=== PATIENT | female | born 1990 | race Caucasian/White ===

== ENCOUNTER 2018-05-03 14:07 | Emergency (ER) | payer SELFPAY ==
[2018-05-03] MEDS ORDERED: Dexamethasone 10 MG/ML VIAL ONE (14:27)
--- NOTE | 2018-05-03 15:01 | RAD ---
SINGLE VIEW OF THE CHEST: Comparison: 12-04-16 History: Acute asthma, dyspnea. FINDINGS: Single view of the chest shows a normal sized cardiomediastinal silhouette. There is no evidence of c onsolidation, mass, or pleural effusion. The bones are unremarkable. IMPRESSION: No evidence of acute cardiopulmonary disease. POS: [facility]
== END 2018-05-03 15:54 | disposition home or self-care (01) ==
LOC: ERS 14:07
DX: J45.901 Unspecified asthma with (acute) exacerbation (principal); F41.9 Anxiety disorder, unspecified; F17.290 Nicotine dependence, other tobacco product, uncomplicated; Z79.899 Other long term (current) drug therapy
CPT/HCPCS: 71045; 94640; J1100; J7620

== ENCOUNTER 2018-10-11 18:29 | Emergency (ER) | payer SELFPAY ==
[2018-10-11] MEDS ORDERED: Albuterol Sulfate 2.5 mg/3 ml Neb ONE (18:57)
--- NOTE | 2018-10-11 20:07 | RAD ---
UPRIGHT FRONTAL CHEST RADIOGRAPH: 10/11/18 COMPARISON: 05/03/18. HISTORY: Acute asthma exacerbation, cough. FINDINGS: No pneumothorax, pleural fluid, focal consolidation, or alveolar edema. Heart and mediastinal contour s are unremarkable. IMPRESSION: No acute findings. POS: [facility]
== END 2018-10-11 20:54 | disposition home or self-care (01) ==
LOC: ERS 18:29
DX: J45.901 Unspecified asthma with (acute) exacerbation (principal); F41.9 Anxiety disorder, unspecified; Z79.899 Other long term (current) drug therapy
CPT/HCPCS: 71045; 94644; J7611; J7620